=== PATIENT | male | born 1970 | race Caucasian/White ===

== ENCOUNTER 2025-01-19 15:07 | Emergency (ER) | payer OTHER, SELFPAY ==
--- OUTSIDE RECORDS SUMMARY | 2025-01-19 15:10 | XMS_ITS | Clinical Summary ---
Author Organization [facility] Address [address] [place] [address] Care Team Providers Care Primary Special Educator Name Role Phone Alexandra Wilson Primary Care Provider [phone] Allergies No known active allergies Medications fish oil 1000 MG Cap capsule Take 1 capsule (1,000 mg total) by mouth 2 (two) times daily. Active acetaminophen (TYLENOL) 500 MG tablet Take 1 tablet (500 mg total) by mouth every 6 (six) hours as needed for Pain. Active atorvastatin (LIPITOR) 20 MG tabletIndications :Dyslipidemia TAKE 1 TABLET NIGHTLY AT BEDTIME 90 tablet 2 5 Active lisinopril (PRINIVIL) 20 MG tabletIndications :Primary hypertension TAKE 1 TABLET DAILY 90 tablet 3 5 Active Active Problems Problem Noted Date Diagnosed Date Cervical radiculopathy 11/04/2022 Overview (11/04/2022): Added automatically from request for surgery [id number] Dyslipidemia 01/17/2012 Hypertension 01/17/2012 Esophageal stricture Resolved Problems Problem Noted Date Diagnosed Date Resolved Date Fatigue 08/05/2016 08/09/2022 Encounters Date Type Department Care Team Description 12/21/2024 Scan [facility] Scanned, Doc [facility] 12/10/2024 10:20 AM CDT - 12/10/2024 10:40 AM CDT Surgery [facility] [place] [address] [id number] Martha Wang MD INJECTION EPIDURAL STEROID CERVICAL c67 12/10/2024 9:43 AM CDT - 12/10/2024 10:06 AM CDT Hospital Encounter [facility] [place] [address] [id number] Martha Wang MD Discharge Disposition: Home or Self Care (Routine Discharge) 12/10/2024 Travel from Last 3 Months Immunizations Immunization Administration Dates Next Due Fluzone 6 Months+ Quad (0.5 mL Prefilled Syringe) 11/16/2021,11/14/2020,11/07/2018 Influenza Adult (Generic) 11/19/2022,01/21/2018 PFIZER COVID-19 (ORIGINAL FO RMULATION, PURPLE CAP) mRNA, LNP-S, PF, 30 MCG/0.3 ML DOSE 02/06/2021,05/09/2020,04/18/2020 Tdap (Generic) 12/13/2013 Family History Medical History Relation Comments Migraines Daughter COPD Father Heart Disease Father Hypertension Father Brain Tumor Mother COPD Mother Diabetes Son Type 1 Relation Status Comments Daughter Father Mother Son Social History Tobacco Use Types Packs/Day Years Used Date Smoking Tobacco: Never Smokeless Tobacco: Never Tobacco Cessation:Counseling Given: No Alcohol Use Standard Drinks/Week Comments Yes 3.3 (1 standard drink = 0.6 oz p ure alcohol) social PHQ-2 Answer Date Recorded Patient Health Questionnaire-2 Score 0 04/18/2024 Sex and Gender Information Value Date Recorded Sex Assigned at Male 06/15/2024 6:54 AM CDT Legal Sex Male 7:44 PM CDT Gender Identity Not on file Sexual Orientation Not on file Last Filed Vital Signs Vital Sign Reading Time Taken Comments Blood Pressure 152/87 12/10/2024 10:00 AM CDT Pulse 84 12/10/2024 10:00 AM CDT Temperature 36.9 C (98.4 F) 12/10/2024 9:47 AM CDT Respiratory Rate 18 12/10/2024 10:00 AM CDT Oxygen Saturation 98% 12/10/2024 10:00 AM CDT Inhaled Oxygen Concentration - - Weight 85.7 kg (189 lb) 12/10/2024 9:47 AM CDT Height 175.3 cm (5' 9) 12/10/2024 9:47 AM CDT Body Mass Index 27.91 12/10/2024 9:47 AM CDT Plan of Treatment Health Maintenance Due Date Last Done Comments Hepatitis B Vaccines (1 of 3 - 19+ 3-dose series) 02/04/1987 Pneumococcal Vaccine: 50+ Years (1 of 1 - PCV) 02/04/2018 Zoster Vaccines (1 of 2) 02/04/2018 DTaP, Tdap and Td Vaccines (2 - Td or Tdap) 12/14/2023 12/13/2013 Annual Physical 08/15/2024 08/16/2023, 10/23, 11/14/2020, Additional history exists COVID-19 Vaccine ( season) 2024 02/06/2021, 05/09/2020, 04/18/2020 Influenza Adult (#1) 2024 11/25/2023, 11/19/2022, 11/16/2021, Additional history exists Colorectal Cancer Screening Colonoscopy (10 Years) 02/06/2029 02/06/2019, 02/06/2019, 02/06/2019 Hepatitis C Completed 12/12/2020 PHQ-2 (Physician [place]) Completed 04/18/2024 Hepatitis A Vaccines Aged Out No long er eligible based on patient's age to complete this topic Meningococcal B Vaccine Aged Out No l onger eligible based on patient's age to complete this topic Meningococcal Vaccine Aged Out No sylwia lorenza eligible based on patient's age to complete this topic RSV Immunizations Under 20 Months Aged Out No longer eligible based on patient's age to complete this topic Procedures Procedure Name Priority Date/Time Associated Diagnosis Comments NJX INTERLAMINAR CRV/THRC 12/10/2024 9:55 AM CDT Cervical radiculopathy XR PAIN CLINIC C-ARM Today 12/10/2024 9:46 AM CDT HEPATITIS C ANTIBODY 12/12/2020 7:42 AM CDT COLONOSCOPY Routine 02/06/2019 9:54 AM CYBER FORENSICS ANALYST from Last 3 Months or Most Recently Relevant to Health Maintenance Results * XR PAIN CLINIC C-ARM (12/10/2024 9:46 AM CDT) Narrative Radiology, Technologist - 12/10/2024 9:46 AM CDT This report does not contain a radiologist's interpretation. Please review associated procedure and/or operative report. us Martha Wang MD GENERAL IMAGING Final Result * HEPATITIS C ANTIBODY (12/12/2020 7:42 AM CDT) HEPATITIS C AB <0.1 0.0 - 0.9 s/co ratio [facility] 1 Comment: Negative: < 0.8 Indeterminate: 0.8 - 0.9 Positive: > 0.9 The CDC recommends that a positive HCV antibody result be followed up with a HCV Nucleic Acid Amplification test ([id number]). 12/12/2020 7:42 AM CDT 12/12/2020 Narrative [facility] - 12/18/2020 8:13 AM CDT Performed at: 01 - [facility] [id number] Turkey Farmer: Neo Parks PhD, Phone: [phone] Alexandra Wilson DO LABORATORY Final Result [facility] [address] [place] [address] [facility] 1 * COLONOSCOPY (02/06/2019) us Documents Scanned SCANNING Final Result [facility] from Last 3 Months or Most Recently Relevant to Health Maintenance Insurance [facility] Care Teams Primary Special Educator Relationship Specialty Start Date End Date Alexandra Wilson DO [address] '[place] [address] PCP - General 07/07/15
[2025-01-19 15:16] VITALS: BP 138/83; PULSE 86; RESP 20; TEMP 36.3; O2SAT 98
--- NOTE | 2025-01-19 15:20 | ED.BACK ---
HPI - Back Pain/Injury General Chief Complaint: Urogenital-Male Stated Complaint: Stomach / Back Pain Time Seen by Provider: 01/19/25 15:24 Source: patient and RN notes reviewed Mode of arrival: ambulatory Limitations: no limitations History of Present Illness HPI Narrative: 54 y/o male presented for c/o pain across low back and lower abdomen. Onset this morning. Rates 5/10. Says urine is darker in color today. Denies known injury. Denies n/v/d/f/c. Denies painful urination or change in urine stream. Denies pain radiating into the hips or legs, numbness, tingling, weakness of the lower extremities. Follows with urology for Peyronie's. Has not taken anything for pain. Related Data Home Medications ?Medication ?Instructions ?Recorded ?Confirmed ?Last Taken ?Type atorvastatin 20 mg tablet mg 01/19/25 Unknown History lisinopril 20 mg tablet mg 01/19/25 Unknown History pentoxifylline 400 mg mg PO 01/19/25 Unknown History tablet,extended release Allergies Allergy/AdvReac Type Severity Reaction Status Date / Time simvastatin Allergy Mild Rash Verified 01/19/25 15:12 Review of Systems Review of Systems: CONSTITUTIONAL: Denies body aches, fever, chills CARDIOVASCULAR: Denies chest pain, palpitations, or edema. RESPIRATORY: Denies cough or dyspnea. GASTROINTESTINAL: Endorses abdominal pain, Denies nausea, vomiting, diarrhea, hematochezia, melena GENITOURINARY: reports dark urine Denies dysuria, or CVA tenderness. SKIN: Denies rash or bruising MUSCULOSKELETAL: reports low back pain, denies joint pain, or myalgia. NEUROLOGIC: Denies headache, numbness, tingling, or weakness. All systems reviewed & are unremarkable except as noted in HPI and below PMFSH Past Medical History Medical History (Updated 01/19/25 @ 15:50 by Anu Scott, YULISSA) Mixed hyperlipidemia Comments At time of signature, I have reviewed and agree with nursing past medical, surgical, social and family history unless otherwise noted. Please see nursing chart for further information. There is no relevant family history pertinent to the presenting complaint Exam Narrative: GENERAL: Well-appearing, and in no acute distress. EYES: EOMI. Conjunctivae normal. ENT: Mucous membranes pink and moist. CHEST: No respiratory distress. Clear to auscultation. HEART: Regular rate and rhythm. No murmur appreciated. Normal peripheral pulses. ABDOMEN: Right flank tenderness. Tender abdomen bilateral lower quadrants; No guarding, rebound tenderness, asymmetry. abd soft, nondistended, normal active bowel sounds. MUSC: Lumbar para spinal tenderness with palpation, no bruising or rash. Normal range of motion. No edema. SKIN: Warm, dry, no rash. Capillary refill normal. Normal skin turgor. NEURO: No focal deficits. Alert and oriented x3. PSYCH: Normal affect. Course Course Emergency Course: Patient is aware of diagnosis, understands and agrees to treatment plan. Anticipatory guidance given. Patient agrees to follow-up as directed and is aware of reasons to seek care at the emergency department. Portions of this record may have been created with voice recognition software Level of Care: Express Care Visit Vital Signs Vital signs: Vital Signs Temperature 97.4 F L 01/19/25 15:16 Pulse Rate 86 01/19/25 15:16 Respiratory Rate 20 01/19/25 15:16 Blood Pressure 138/83 01/19/25 15:16 Pulse Oximetry 98 01/19/25 15:16 Oxygen Delivery Room Air 01/19/25 15:16 Temperature 97.4 F L 01/19/25 15:16 Pulse Rate 86 01/19/25 15:16 Respiratory Rate 20 01/19/25 15:16 Blood Pressure 138/83 01/19/25 15:16 Pulse Oximetry 98 01/19/25 15:16 Oxygen Delivery Room Air 01/19/25 15:16 Transfer Transfered to: [facility] Transportation: Other (private vehicle) Transfer rationale: Pt is agreeable to transfer. Requests transfer to [facility] via private vehicle. Risks of transportation reviewed with pt including injury, worsening of condition and . v/u. will be driving pt; Report called to hospital, spoke with Nickie Bojorquez NP, accepting physician. Pt is in stable condition at time of transfer. Advised to remain NPO and go directly to the hospital. MDM - Back Pain/Injury MDM Narrative Medical decision making narrative: Discussed physical exam findings; right flank tenderness and 3+blood on urine dip. Advised ER transfer. Requests [facility]. Differential Diagnosis Differential diagnosis: Likely lumbar radiculopathy, strain of lumbar region, renal colic, pyelonephritis and other (UTI, nephrolithiasis, prostatitis) Discharge Plan Discharge Clinical Impression: Hematuria Qualifiers: Hematuria type: gross Qualified Code(s): R31.0 - Gross hematuria Patient Disposition: Acute Care Hospital Condition: Stable Patient Language: Turkish Prescriptions: No Action atorvastatin 20 mg tablet lisinopril 20 mg tablet pentoxifylline 400 mg tablet extended release PO Follow-up/Referrals: Steve,Alexandra Chappell MD [Primary Care Provider] Time of Disposition: 15:50
[2025-01-19 15:34] LABS: EDUAAPPEAR Cloudy; EDUABILI Negative (Negative); EDUABLOOD 3+ (Negative); EDUACOLOR1 Red; EDUAGLUCOSE Negative (Negative); EDUAKETONE Negative (Negative); EDUALEUKO Negative (Negative); EDUANITRATE Negative (Negative); EDUAPH 6.0; EDUAPROTEIN 1+ (Negative); EDUASPGRAVITY 1.020; EDUAUROBILI 0.2
== END 2025-01-19 15:51 | disposition short-term general hospital (02) ==
PROVIDERS: Emergency Provider Nurse Practitioner Family; PCP Family Medicine
DX: R31.0 Gross hematuria (principal); E78.2 Mixed hyperlipidemia
CPT/HCPCS: 81003; 87086; 99212; 99213; G0463

== ENCOUNTER 2025-01-19 15:56 | Emergency (ER) | payer OTHER, SELFPAY ==
--- NOTE | ~2025-01-19 | CT_ITS ---
EXAMINATION: CT abdomen pelvis wo con, 01/19/2025 16:40 [facility] HISTORY: concern for kidney stone COMPARISON: No comparisons available. TECHNIQUE: CT scan of the abdomen and pelvis was performed without IV contrast. One or more of the following dose reduction techniques were used: automated exposure control, adjustment of the mA and/or kV according to patient size, use of iterative reconstruction technique. Unless otherwise stated, incidental findings do not require dedicated follow up imaging FINDINGS: CT abdomen: LUNG BASES: The lung bases are clear. The visualized portions of the heart and pericardium are unremarkable. LIVER: Mild hepatic steatosis. SPLEEN: Unremarkable, no splenomegaly. KIDNEYS: Right Kidney: Right kidney midpole simple cyst 1.5 x 1.5 cm with mild hydronephrosis with an obstructing calculus in the junction of the renal pelvis and proximal ureter measuring 1.2 x 1 cm. Left Kidney: Left kidney midpole simple cyst 1 x 1 cm. ADRENAL GLANDS: Unremarkable. PANCREAS: Unremarkable. GALLBLADDER/BILIARY: Unremarkable. No biliary dilatation. STOMACH AND ESOPHAGUS: Small hypoattenuating minimal thickening of the esophagus may represent mild esophagitis. BOWEL/MESENTERY: No colitis or diverticulitis. Appendix normal. Mesentery normal. No thickened or dilated loops of small bowel. ADENOPATHY/RETROPERITONEUM: No lymphadenopathy. AORTA/VASCULATURE: Normal caliber aorta. FREE FLUID OR FREE AIR: No free fluid.. CT pelvis: SOLID ORGANS/REPRODUCTIVE: Prostate enlarged. BLADDER: Circumferential thickening of the bladder wall. OSSEOUS STRUCTURES: No acute osseous abnormality.No suspicious lesions. OVERLYING SOFT TISSUES: Unremarkable. IMPRESSION: Right-sided obstructive uropathy Reviewed, dictated and finalized at location [facility]
--- NOTE | 2025-01-19 16:00 | ED_ITS ---
HPI - Male Genitourinary General Chief complaint: Urogenital-Male Stated complaint: blood in urine Time Seen by Provider: 01/19/25 15:58 History of Present Illness HPI Narrative: Patient is a 54-year-old male who presents to the ER with complaints of back pain that radiates to his abdomen. He reports the pain started this morning. Patient reports the right flank pain is worse than the left but the pain is bilateral. He reports his last bowel movement was this morning and it was normal for him. Patient reports he has had ?dark urine so he went to urgent care for further evaluation, who advised him to come to the ER for evaluation. He endorses a history of hip osteoarthritis, high blood pressure and a known nonobstructing kidney stone. Related Data Home Medications ?Medication ?Instructions ?Recorded ?Confirmed ?Last Taken ?Type atorvastatin 20 mg tablet mg 01/19/25 Unknown History lisinopril 20 mg tablet mg 01/19/25 Unknown History pentoxifylline 400 mg mg PO 01/19/25 Unknown Hist ory tablet,extended release Allergies Allergy/AdvReac Type Severity Reaction Status Date / Time No Known Allergies Allergy Verified 01/19/25 16:05 Review of Systems 2 Review of Systems: All systems reviewed & are unremarkable except as noted in HPI and below PMFSH Past Medical History Medical History Mixed hyperlipidemia Exam 2 Narrative: GENERAL: Well appearing, well-nourished, non-toxic, in no acute distress. HEAD: Normocephalic, atraumatic. NECK: Supple. No adenopathy, no masses. RESPIRATORY: Airway patent, respirations nonlabored. Clear to auscultation bilaterally, no rales, rhonchi, wheezing. CARDIOVASCULAR: Regular rate and rhythm without murmurs, rubs, or gallops. Peripheral pulses 2+ and equal bilaterally. +R CVA tenderness ABDOMINAL: Soft, bilateral lower quadrant tenderness, nondistended, no hepatosplenomegaly. Normoactive BS. MUSCULOSKELETAL: Moves all extremities. Strength/ROM intact without gross deformities. SKIN: Warm, dry, normal color. No rashes. NEURO: A&O X3. Speech clear. Cranial nerves II-XII intact. No ataxic movements. PSYCHIATRIC: Appropriate mood and affect. Normal interaction. Course Vital Signs Vital signs: Vital Signs Temperature 36.4 C L 01/19/25 16:02 Pulse Rate 77 01/19/25 16:02 Respiratory Rate 18 01/19/25 16:02 Blood Pressure 143/93 H 01/19/25 16:02 Pulse Oximetry 99 01/19/25 16:02 Oxygen Delivery Room Air 01/19/25 16:02 Temperature 36.4 C L 01/19/25 16:02 Pulse Rate 77 01/19/25 16:02 Respiratory Rate 18 01/19/25 16:02 Blood Pressure 143/93 H 01/19/25 16:02 Pulse Oximetry 99 01/19/25 16:02 Oxygen Delivery Room Air 01/19/25 16:02 MDM - Male Genitourinary MDM Narrative Medical decision making narrative: Patient is a 54-year-old male who presents to the ER with complaints of back pain that radiates to his abdomen. He reports the pain started this morning. Patient reports the right flank pain is worse than the left but the pain is bilateral. He reports his last bowel movement was this morning and it was normal for him. Patient reports he has had ?dark urine so he went to urgent care for further evaluation, who advised him to come to the ER for evaluation. He endorses a history of hip osteoarthritis, high blood pressure and a known nonobstructing kidney stone. Labs Ordered: CBC, CMP, UA (at urgent care) Imaging Ordered: CT abdomen pelvis Medications Ordered: 1 L normal saline IV bolus, patient declines pain medication at this time Results: Pt's CT scan indicates Right kidney midpole simple cyst 1.5 x 1.5 cm with mild hydronephrosis with an obstructing calculus in the junction of the renal pelvis and proximal ureter measuring 1.2 x 1 cm. Diagnosis: mild hydronephrosis, R obstructing calculi in proximaly ureter Risks: HEART score, PECARN score, CURB-65 score Consults: 3527- urology, Dr. Jeter, who advises pt can be discharged home with close follow-up with urology outpatient. She reports pt does not need a prescription for Flomax. Pt may receive Toradol as needed for pain control. Patient Education/Shared MDM: Results of lab work and imaging shared with patient and his . He continues to decline the need for pain medication. Patient strongly advised to maintain hydration status upon discharge and follow- up with Urology as soon as possible. He will be discharged home with a prescription for [place]. Strict return precautions provided. Patient verbalized understanding and is in agreement with plan. Vital signs stable at time of discharge. All questions answered. Differential Diagnosis Differential diagnosis: Likely urinary tract infection, acute retention of urine and other (Kidney stone, hematuria, TOMAS) Lab Data Attestation: I reviewed the patient's lab results. 01/19/25 16:15 01/19/25 16:15 Labs: Lab Results 01/19/25 Range/Units 16:15 WBC 7.9 (4.5-10.0) K/mm3 RBC 5.30 (4.6-6.20) M/mm3 Hgb 15.5 (14.0-18.0) g/dL Hct 45.4 (42.0-52.0) % MCV 85.7 (80-100) fl MCH 29.2 (26-34) pg MCHC 34.1 (32-36) g/dl RDW 12.3 (11.5-14.5) % Plt Count 264 (150-375) k/mm3 MPV 9.0 (7.4-10.4) fl Immature Gran % (Auto) 0.3 (0-0.5) % Neut % (Auto) 73.3 H (45.5-73.1) % Lymph % (Auto) 18.3 (18.3-44.2) % [place] % (Auto) 6.3 (2.6-8.5) % Eos % (Auto) 1.4 (0-4.4) % Baso % (Auto) 0.4 (0.2-1.2) % Lymph # (Auto) 1.44 (0.9-3.2) K/mm3 [place] # (Auto) 0.5 (0.1-0.6) K/mm3 Eos # (Auto) 0.1 (0-0.3) K/mm3 Baso # (Auto) 0.0 (0.0-0.1) K/mm3 Abs Immat Gran (auto) 0.02 (0.00-0.031) K/mm3 Absolute Neuts (auto) 5.8 (1.3-6.7) K/mm3 Absolute Nucleated RBC 0.000 (0.0-0.012) K/mm3 Nucleated RBC % 0.0 (0.0-0.2) % Sodium 139 (137-145) mmol/L Potassium 3.9 (3.4-5.0) mmol/L Chloride 103 (98-107) mmol/L Carbon Dioxide 27 (22-30) mmol/L Anion Gap 9 (4-12) mmol/L BUN 13 (9-20) mg/dL Creatinine 0.80 (0.7-1.3) mg/dL Estim Creat Clear Calc 90 ml/min Estimated GFR > 60 (59 - ) Glucose 109 (65-110) mg/dL Calcium 10.0 (8.4-10.2) mg/dL Total Bilirubin 2.3 H (0.2-1.3) mg/dL AST 30 (17-59) U/L ALT 28 (6-50) U/L Alkaline Phosphatase 100 (38-126) U/L Total Protein 8.0 (6.3-8.2) g/dL Albumin 4.8 (3.5-5.1) g/dL Imaging Data Attestation: I personally reviewed and interpreted this imaging study as follows: Radiologist's impression: Impressions Abdomen/Pelvis CT 01/19/25 17:16 IMPRESSION: Right-sided obstructive uropathy Discharge Plan Discharge Clinical Impression: Renal calculus, right, Hematuria, Renal cyst, right Patient Disposition: Home Condition: Stable Instructions: Antibiotic Form, Kidney Stones (ED) Additional Instructions: Please return to the ER with any worsening symptoms. Follow-up with Urology as soon as possible. You may call [phone] to schedule a follow-up appointment or call the urologist's office listed below. Take all medications as prescribed, including regularly scheduled medications. Remember to drink lots of water. You may take [place] as needed for pain control. Patient Language: Pakistani Prescriptions: No Action atorvastatin 20 mg tablet lisinopril 20 mg tablet pentoxifylline 400 mg tablet extended release PO Follow-up/Referrals: Becca Jeter MD [Physician, Urology] Steve,Alexandra Chappell MD [Primary Care Provider] Time of Disposition: 18:02
[2025-01-19 16:02] VITALS: BP 143/93; PULSE 77; RESP 18; TEMP 36.4; O2SAT 99
[2025-01-19 16:27] LABS: Hematocrit 45.4 % (42.0-52.0); Hemoglobin 15.5 g/dL (14.0-18.0); Immature Granulocyte Percent A 0.3 % (0-0.5); Lymphocytes Absolute Auto 1.44 K/mm3 (0.9-3.2); Mean Corpuscular HGB Conc 34.1 g/dl (32-36); Mean Corpuscular Hemoglobin 29.2 pg (26-34); Mean Corpuscular Volume 85.7 fl (80-100); Nucleated Red Blood Cells Absolute Auto 0.000 K/mm3 (0.0-0.012); Nucleated Red Blood Cells Perc 0.0 % (0.0-0.2); Platelet Count Result 264 k/mm3 (150-375); Red Blood Count 5.30 M/mm3 (4.6-6.20); White Blood Count 7.9 K/mm3 (4.5-10.0)
[2025-01-19 16:39] LABS: Alanine Aminotransferase 28 U/L (6-50); Albumin Level 4.8 g/dL (3.5-5.1); Alkaline Phosphatase 100 U/L (38-126); Anion Gap 9 mmol/L (4-12); Aspartate Amino Transferase 30 U/L (17-59); Bilirubin,Total 2.3 mg/dL (0.2-1.3); Blood Urea Nitrogen 13 mg/dL (9-20); Calcium 10.0 mg/dL (8.4-10.2); Carbon Dioxide 27 mmol/L (22-30); Chloride 103 mmol/L (98-107); Estimated CRCL calculation 90 ml/min; Estimated Glomerular Filt Rate > 60; Glucose 109 mg/dL (65-110); Potassium 3.9 mmol/L (3.4-5.0); Sodium 139 mmol/L (137-145); Total Protein 8.0 g/dL (6.3-8.2)
[2025-01-19 18:42] VITALS: BP 139/87; PULSE 90; RESP 15; O2SAT 100
== END 2025-01-19 18:43 | disposition home or self-care (01) ==
PROVIDERS: Emergency Provider Registered Nurse; PCP Family Medicine
DX: N13.2 Hydronephrosis with renal and ureteral calculous obstruction (principal); N28.1 Cyst of kidney, acquired; R31.9 Hematuria, unspecified; I10 Essential (primary) hypertension; E78.2 Mixed hyperlipidemia; M16.9 Osteoarthritis of hip, unspecified
CPT/HCPCS: 36415; 74176; 80053; 85025; 96360; 99284

== ENCOUNTER 2025-01-24 11:10 | Outpatient (CLI) | payer OTHER, SELFPAY ==
--- NOTE | 2025-01-24 11:38 | ECG_ITS ---
Test Date: 2025-01-24 11:48:45 Measurements Intervals [place] Rate: 74 P: 55 NV: 183 QRS: 37 QRSD: 102 T: 49 QT: 345 QTc: 383 Interpretive Statements SINUS RHYTHM BASELINE ARTIFACT- I, II, III, AVR, AVL NORMAL ECG No previous ECG available for comparison Electronically Signed On 01-24-2025 11:52:27 LISW by Adams Dhillon D.O.
[2025-01-24 12:16] LABS: INR 1.0; Prothrombin Time 13.2 Seconds (11.1-14.7)
[2025-01-24 12:17] LABS: Partial Thromboplastin Time 32.0 Seconds (22.3-36.8)
== END 2025-01-24 11:11 | disposition home or self-care (01) ==
LOC: ANHSURGERY 11:12
PROVIDERS: PCP Family Medicine; Visit Provider Urology
DX: E78.2 Mixed hyperlipidemia (principal); N20.0 Calculus of kidney; Z01.818 Encounter for other preprocedural examination
CPT/HCPCS: 36415; 85610; 85730; 93005

== ENCOUNTER 2025-01-25 01:31 | Day surgery (SDC) | payer OTHER, SELFPAY ==
[2025-01-23 13:44] VITALS: BMI 26.6
--- NOTE | 2025-01-23 15:24 | PC.NURSE ---
[facility] has started construction of its new state of the art ER which will open Spring 2026. With this, we anticipate parking may be a challenge for some our surgical patients and families. Parking spaces are limited but are available for all Surgical, obstetrics, and ER patients sharing this lot. If you arrive and find you are having a hard time finding a parking space, please note that we understand the challenges, please drive around the hospital and park near Hospital Entrance 1. When you enter this entrance, you can ask a volunteer to direct or take you back to the surgical waiting area to check in. We appreciate everyone?s understanding of these expected challenges while we build for your future. Report to the Outpatient Waiting Room, entrance under the green pavilion located off [address], at time __11:00AM____ on date ___01/25/25__. Planned Procedure Time: __1:00PM____.? Time changes happen often and if your time is changed the preop area will call you the afternoon before. - You and your visitor will be asked to self-screen and do not enter if you have any COVID symptoms. Please call surgeon if you need to reschedule. - A mask is optional within the hospital at this time. Patients may have clear liquids (water, carbonated beverages, clear teas, apple juice) until 3 hours prior to surgery (10:00AM) with a maximum of 20 ounces. - No food from midnight until time of surgery and no smoking, or chewing tobacco (or any form of nicotine). No chewing gum, candy or mints. Take only the following medications with a SIP of water on the morning of surgery: ___OXYCODONE NEEDED FOR PAIN DO NOT STOP ANY OF YOUR OTHER PRESCRIPTION MEDICATIONS PRIOR TO SURGERY EXCEPT THE FOLLOWING Hold all vitamins and supplements for 3 days per anesthesiologist.--STARTING NOW Medications to discontinue per physician Date to take last dose Please no make-up, nail colombian, hairspray, perfume, deodorant, or body powder the day of surgery.? No jewelry (including any body piercings) or valuables the day of surgery, leave them at home.? Please take a shower or bath the night before, or the morning of, surgery with an antibacterial soap.? Wear comfortable, loose fitting clothing.? - Jewelry must be removed prior to entering the operating room.? Rings and piercings that are not removed may be cut off. - The hospital will not accept responsibility for valuables.? - Please leave all valuables, including medications, at home the day of surgery. If you are going home after surgery, a licensed services delivery driver must drive you home.? - NO public transportation without another adult if you receive anesthesia. - We recommend that an adult stay with you for 24 hours following discharge. - We also recommend that you do not drive, make important decision, drink alcoholic beverages, or take any drugs that were not prescribed by your health care provider for at least 24 hours after your discharge time. Follow any additional instructions given to you from your surgeon. Telephone instructions given to ____PATIENT and asked if any additional questions and then verbalized understanding. Patient advised to call surgeon office or pre surgery nurse liaison [phone] if any additional questions.
[2025-01-25] VITALS (10 sets, daily range): BP systolic 113–169; BP diastolic 79–88; PULSE 67–105; RESP 12–14; TEMP 36.3–37.1; O2SAT 97–100; BMI 27.6
--- NOTE | ~2025-01-25 | XR_ITS ---
XR abdomen/kub 1V 01/25/2025 11:10 Indication: Preop ESWL Procedure: KUB Comparison: CT dated 01/19/2025 Findings: There is an irregular shaped calcification in the right renal pelvis. Bowel gas pattern nonobstructive. Lung bases unremarkable. No acute osseous abnormality. There are pelvic phleboliths. Impression: 1: Irregular shaped right renal stone overlying the expected location the renal pelvis. Reviewed, dictated and finalized at location I. LLMENT MANAGEMENT DIRECTOR Impression: 1: Irregular shaped right renal stone overlying the expected location the renal pelvis.
--- OUTSIDE RECORDS SUMMARY | 2025-01-25 01:34 | XMS_ITS | Encounter Summary ---
Author Organization [facility] Address [facility] [place] [address] Care Team Providers Care Charting Clerk Name Role Phone Alexandra Wilson DO Primary Care Provider [phone] Encounter Details Date Type Department Care Team (Latest Contact Info) Description 01/22/2025 Scan [facility] INFO SRVCS Scanned, Doc Med Group Social History Tobacco Use Types Packs/Day Years Used Date Smoking Tobacco: Never Smokeless Tobacco: Never Alcohol Use Standard Drinks/Week Comments Yes 3.3 (1 standard drink = 0.6 oz p ure alcohol) social PHQ-2 Answer Date Recorded Patient Health Questionnaire-2 Score 0 04/18/2024 Sex and Gender Information Value Date Recorded Sex Assigned at Male 06/15/2024 6:54 AM CDT Legal Sex Male 7:44 PM CDT Gender Identity Not on file Sexual Orientation Not on file documented as of this encounter Plan of Treatment Not on file documented as of this encounter Visit Diagnoses Not on filedocumented in this encounter Additional Health Concerns Assessment Noted Time PHQ-9 Depression Total Score: 0 11/15/19 21 7:50 AM CDT documented as of this encounter Care Teams Charting Clerk Relationship Specialty Start Date End Date Alexandra Wilson DO [address] [place] [address] PCP - General 07/07/15 documented as of this encounter
--- OUTSIDE RECORDS SUMMARY | 2025-01-25 01:34 | XMS_ITS | Clinical Summary ---
Author Organization [facility] Address [address] [place] [address] Care Team Providers Care Bracelet Former Name Role Phone Alexandra Wilson Primary Care Provider [phone] Allergies No known active allergies Medications fish [...] (11/04/2022): Added automatically from request for surgery [id number] Dyslipidemia 01/17/2012 Hypertension 01/17/2012 Esophageal stricture Resolved Problems Problem Noted Date Diagnosed Date Resolved Date Fatigue 08/05/2016 08/09/2022 Encounters Date Type Department Care Team Description 01/22/2025 Scan [facility] INFO SRVCS Scanned, Doc Med Group 12/21/2024 Scan [facility] INFO SRVCS Scanned, Doc Med Group 12/10/2024 10:20 AM CDT - 12/10/2024 10:40 AM CDT Surgery [facility] Interventional [place] [address] [id number] Martha Wang MD INJECTION EPIDURAL STEROID CERVICAL c67 12/10/2024 9:43 AM CDT - 12/10/2024 10:06 AM CDT Hospital Encounter [facility] Interventional [place] [address] [id number] Martha Wang MD Discharge Disposition: Home or [...] 02/06/2019 Hepatitis C Completed 12/12/2020 PHQ-2 (Physician [place]) Completed 04/18/2024 Hepatitis A Vaccines Aged Out [...] AM CDT COLONOSCOPY Routine 02/06/2019 9:54 AM NETWORK CABLE INSTALLER from Last 3 Months or Most Recently Relevant to Health Maintenance Results * XR PAIN CLINIC C-ARM (12/10/2024 9:46 AM CDT) Narrative Radiology, Technologist - 12/10/2024 9:46 AM CDT This report does not contain a radiologist's interpretation. Please review associated procedure and/or operative report. us Martha Wang MD GENERAL IMAGING Final Result * HEPATITIS C ANTIBODY (12/12/2020 7:42 AM CDT) Pathologist [facility] HEPATITIS C AB <0.1 0.0 - 0.9 s/co ratio [facility] 1 Comment: Negative: < 0.8 Indeterminate: 0.8 - 0.9 Positive: > 0.9 The CDC recommends that a positive HCV antibody result be followed up with a HCV Nucleic Acid Amplification test (353974). 12/12/2020 7:42 AM CDT 12/12/2020 Narrative [facility] - 12/18/2020 8:13 AM CDT Performed at: 01 - [facility] [id number] Tour Narrator: Neo Parks PhD, Phone: [phone] Alexandra Wilson DO LABORATORY Final Result [facility] [address] [place] [address] [facility] 1 * COLONOSCOPY (02/06/2019) us Documents Scanned SCANNING Final Result [facility] ONBASE from Last 3 Months or Most Recently Relevant to Health Maintenance Insurance [facility] Care Teams Bracelet Former Relationship Specialty Start Date End Date Alexandra Wilson DO [address] [place] [address] PCP - General 07/07/15
--- NOTE | 2025-01-25 06:24 | WPDHPUPDATE1 ---
History and Physical Update Update Date/Time: 01/25/25 06:24 History and Physical has been reviewed, including an updated exam of the patient. There are NO changes in the patient's condition. Risks, benefits, and alternatives have been discussed and questions answered. Patient agrees to proceed with procedure.
[2025-01-25] MEDS: LACTATED RINGERS 1,000 ML 30 ML IV CONT (11:45)
--- NOTE | 2025-01-25 12:53 | WPDANESEPPF ---
Anes - Initial Pre Proc Eval Procedure: Operation Date: 01/25/25 13:00 Proposed Procedures p Right Extracorporeal Shock Wave Lithotripsy - Edil Kolb MD s Cystoscopy with Right Stent Placement - Edil Kolb MD Date/Time: 01/25/25 12:53 Surgeon: Edil Kolb MD Pre Op Diagnosis: Urolithiasis, Rt Kidney Stone Patient Data Age: 54 Gender: M Height: 1.75 m Weight: 82 kg Allergies Allergy/AdvReac Type Severity Reaction Status Date / Time No Known Allergies Allergy Verified 01/25/25 12:49 Home Medications ?Medication ?Instructions ?Recorded ?Confirmed ?Type atorvastatin 20 mg tablet 20 mg PO HS 01/19/25 01/23/25 History lisinopril 20 mg tablet 20 mg PO QAM 01/19/25 01/23/25 History pentoxifylline 400 mg 400 mg PO Q12H PRN pain 01/19/25 01/23/25 History tablet,extended release oxycodone 5 mg tablet 5 mg PO Q8H PRN pain #14 tabs 01/21/25 01/23/25 Rx omega 3-xwf-obm-fish oil 1,000 mg 1 cap PO DAILY 01/23/25 01/25/25 History (120 mg-180 mg) capsule (Fish Oil) tamsulosin 0.4 mg capsule 0.4 mg PO Q24H 01/23/25 01/23/25 History Patient hx anesthesia problems: none Family hx anesthesia problems: none Results Review: All pre-operative results and documents have been reviewed as part of the pre-operative evaluation. [facility] Past Medical History Medical History Mixed hyperlipidemia Social History Social History Smoking status: Current some day smoker Additional smoking assessment comments: 1 CIGAR EVERY 3-4 MONTHS Alcohol intake: current Drinks per week: 3 Living arrangements: with family Additional living arrangements comments: Spiritual care concerns: No Anes - Eval Final PreProcedure Day of Procedure 01/25/25 12:53 Patient weight: overweight Heart: regular rate and rhythm Lungs: decreased breath sounds Airway: Mallampati scale class II Neurological: alert and oriented Last oral intake: >/= 8 hours ASA classification: III Emergent: no Anesthetic plan: proceed Anesthesia type and monitoring: general LMA and standard monitoring Results Review: All pre-operative results and documents have been reviewed as part of the pre-operative evaluation. Informed Consent: The patient's anesthetic plan and its attendant risks and benefits were discussed with the patient/family/POA. Questions were solicited and answers provided to the satisfaction of the patient/family/POA.
[2025-01-25] MEDS: ceFAZolin 2 GM in SODIUM CHLORIDE 0.9% IV 50 ML 100 ML IVPB (13:03)
[2025-01-25] MEDS: LIDOCAINE 2% GEL UROJET 10 ML PKG MUCOUS MEM (13:05)
--- NOTE | 2025-01-25 13:33 | P.OP_ITS ---
Procedure Note - Detailed Date of Procedure 01/25/25 Pre-op Diagnosis Right ureteral stone Post-op Diagnosis Same Procedure Performed Cystoscopy, right ureteral stent placement, right ESWL Surgeon Edil Kolb MD Anesthesia General Description of Procedure The patient was brought to the operative suite where he was placed in the supine position on the Dornier lithotripter table. Flexible cystoscopy was undertaken with a 16F flexible cystoscopy. There were no urethral strictures. The prostatic urethra estimated length was 1.5cm. There was mild obstruction of the prostatic urethra with nomedian lobe enlargement. The bladder mucosa was normal and there was a single, orthotopic ureteral orifice bilaterally. A 0.035 glidewire was advanced into the right renal pelvis under fluoroscopy. A 4.8F J- J ureteral stent was positioned with the proximal coil in the renal pelvis and the distal coil in the bladder. The patient was then repositioned in the supine position with the focal point of the lithotriptor on a 16mm right proximal ureterall calculus. A total of 3000 shocks were delivered at a power setting of 5. There appeared to be good fragmentation of the stone. The patient tolerated the procedure well and was taken to the recovery room in good condition.
--- NOTE | 2025-01-25 15:45 | SUR.PHASEII ---
PATIENT ATTEMPTED TO URINATE X2 BUT ONLY DRIBBLES; FEELS THE URGE TO URINATE.
== END 2025-01-25 16:25 | disposition home or self-care (01) ==
PROVIDERS: PCP Family Medicine; Visit Provider Urology
PROC: (CPT 50590; principal; 2025-01-25 13:00)
PROC: (CPT 52352; 2025-01-25 13:00)
DX: N20.1 Calculus of ureter (principal); I10 Essential (primary) hypertension; E78.2 Mixed hyperlipidemia; F17.290 Nicotine dependence, other tobacco product, uncomplicated; Z79.891 Long term (current) use of opiate analgesic; Z98.890 Other specified postprocedural states; Z82.49 Family history of ischemic heart disease and other diseases of the circulatory system
CPT/HCPCS: 52332; 50590; 74018; J0690; C1758; C1769; C2617; J1100; J2250; J2270; J2405; J2704; J7120

== ENCOUNTER 2025-02-05 13:27 | Outpatient (CLI) | payer OTHER, SELFPAY ==
--- NOTE | ~2025-02-05 | XR_ITS ---
EXAMINATION: XR abdomen/kub 1V, 02/05/2025 13:35 OPERATION SPECIALIST HISTORY: N20.1 - Calculus of ureter COMPARISON: No comparisons available. Technique: 3 view. Findings: Bowel gas pattern unremarkable. No obstruction. No free air. No abnormal calcifications No acute osseous abnormality. Right ureteral stent with calculi in the right kidney largest lower pole 5 x 6 mm, there are calculi adjacent to the stent in the proximal to mid ureter the largest measuring 3 x 4 mm. Impression: 1. Renal and right ureteral calculi detailed above Reviewed, dictated and finalized at location P. ATION SPECIALIST Impression: 1. Renal and right ureteral calculi detailed above
--- OUTSIDE RECORDS SUMMARY | 2025-02-05 15:32 | XMS_ITS | Clinical Summary ---
Author Organization [facility] Address [address] [place] [address] Care Team Providers Care Iv Rn Name Role Phone Alexandra Wilson Primary Care Provider Allergies No known active allergies Medications fish [...] (11/04/2022): Added automatically from request for surgery [id number] Dyslipidemia 01/17/2012 Hypertension 01/17/2012 Esophageal stricture Resolved Problems Problem Noted Date Diagnosed Date Resolved Date Fatigue 08/05/2016 08/09/2022 Encounters Date Type Department Care Team Description 01/25/2025 Scan [facility] INFO SRVCS Scanned, Doc Med Group Image (SCAN); Procedure (SCAN) 01/22/2025 Scan [facility] INFO SRVCS Scanned, Doc Med Group 01/19/2025 Scan [facility] INFO SRVCS Scanned, Doc Med Group 12/21/2024 Scan [facility] INFO SRVCS Scanned, Doc Med Group 12/10/2024 10:20 AM CDT - 12/10/2024 10:40 AM CDT Surgery [facility] Interventional [place] [address] [id number] Martha Wang MD INJECTION EPIDURAL STEROID CERVICAL c67 12/10/2024 9:43 AM CDT - 12/10/2024 10:06 AM CDT Hospital Encounter [facility] [place]ventional [place] [address] [phone] Martha Wang MD Discharge Disposition: Home or [...] 10/23, 11/14/2020, Additional history exists COVID-19 Vaccine (2024- season) 2024 02/06/2021, 05/09/2020, 04/18/2020 Influenza Adult (#1) 2024 11/25/2023, 11/19/2022, 11/16/2021, Additional history exists Colorectal Cancer Screening Colonoscopy (10 Years) 02/06/2029 02/06/2019, 02/06/2019, 02/06/2019 Hepatitis C Completed 12/12/2020 PHQ-2 (Physician [place]) Completed 04/18/2024 Hepatitis A Vaccines Aged Out [...] Procedure Name Priority Date/Time Associated Diagnosis Comments IMAGE GENERIC 01/25/2025 PROCEDURE GENERIC (SCAN ORDER) 01/25/2025 NJX INTERLAMINAR CRV/THRC 12/10/2024 9:55 AM CDT Cervical radiculopathy XR PAIN CLINIC C-ARM Today 12/10/2024 9:46 AM CDT HEPATITIS C ANTIBODY 12/12/2020 7:42 AM CDT COLONOSCOPY Routine 02/06/2019 9:54 AM MOTOR DRIVER from Last 3 Months or Most Recently Relevant to Health Maintenance Results * IMAGE GENERIC (01/25/2025) Anatomical Region Laterality Modality Other 01/25/2025 [facility] Scanned SCANNING Final Resu lt * PROCEDURE GENERIC (SCAN ORDER) (01/25/2025) 01/25/2025 [facility] Scanned SCANNING Final Resu lt * XR PAIN CLINIC C-ARM (12/10/2024 9:46 AM CDT) Narrative Radiology, Technologist - 12/10/2024 9:46 AM CDT This report does not contain a radiologist's interpretation. Please review associated procedure and/or operative report. Martha Wang MD GENERAL IMAGING Final Result * HEPATITIS C ANTIBODY (12/12/2020 7:42 AM CDT) HEPATITIS C AB <0.1 0.0 - 0.9 s/co ratio [facility] 1 Comment: Negative: < 0.8 Indeterminate: 0.8 - 0.9 Positive: > 0.9 The CDC recommends that a positive HCV antibody result be followed up with a HCV Nucleic Acid Amplification test ([id number]). 12/12/2020 7:42 AM CDT 12/12/2020 Narrative [facility] - 12/18/2020 8:13 AM CDT Performed at: [facility] [id number] Fruit Harvester: Neo Parks PhD, Phone: [phone] us Alexandra Wilson DO LABORATORY Final Result [facility] [address] [place] [address] [facility] 1 * COLONOSCOPY (02/06/2019) us Documents Scanned SCANNING Final Result [facility] ONBASE from Last 3 Months or Most Recently Relevant to Health Maintenance Insurance [facility] Care Teams Iv Rn Relationship Specialty Start Date End Date Alexandra Wilson DO [address] [place], [place] [id number] PCP - General 07/07/15
--- OUTSIDE RECORDS SUMMARY | 2025-02-05 15:32 | XMS_ITS | Encounter Summary ---
Author Organization [facility] Address [facility] [place] [address] Care Team Providers Care Process Automation Engineer Name Role Phone Alexandra Wilson DO Primary Care Provider [phone] Reason for Visit * Reason Comments Image (SCAN) Procedure (SCAN) Encounter Details Date Type Department Care Team ([facility] Contact Info) Description 01/25/2025 Scan HEALTH INFO SRVCS Scanned, Doc Med Group Image (SCAN); Procedure (SCAN) Social History Tobacco Use Types Packs/Day Years [...] on file documented as of this encounter Procedures Procedure Name Priority Date/Time Associated Diagnosis Comments IMAGE GENERIC 01/25/2025 PROCEDURE GENERIC (SCAN ORDER) 01/25/2025 documented in this encounter Results * PROCEDURE GENERIC (SCAN ORDER) (01/25/2025) 01/25/2025 us Doc Med Group Scanned SCANNING Final Resu lt * IMAGE GENERIC (01/25/2025) Anatomical Region Laterality Modality Other 01/25/2025 us Doc Med Group Scanned SCANNING Final Resu lt documented in this encounter Visit Diagnoses Not on filedocumented in this encounter Additional Health Concerns Assessment Noted Time PHQ-9 Depression Total Score: 0 11/15/19 21 7:50 AM CDT documented as of this encounter Care Teams Process Automation Engineer Relationship Specialty Start Date End Date Alexandra Wilson DO [address] [place] [address] PCP - General 07/07/15 documented as of this encounter
== END 2025-02-05 13:28 | disposition home or self-care (01) ==
PROVIDERS: PCP Family Medicine; Visit Provider Urology
DX: N20.0 Calculus of kidney (principal); N20.1 Calculus of ureter
CPT/HCPCS: 74018

== ENCOUNTER 2025-02-11 08:08 | Outpatient (CLI) | payer OTHER, SELFPAY ==
--- NOTE | ~2025-02-11 | XR_ITS ---
XR abdomen/kub 1V 02/11/2025 08:21 Indication: Kidney stone Procedure: KUB Comparison: 02/05/2025 Findings: Bowel gas pattern nonobstructive. There are right renal stones particularly in the lower pole. There is right proximal ureteral stones near the expected location of the UPJ. There is a right internal ureteral stent in expected position. Bowel gas pattern nonobstructive. There are pelvic phleb oliths. Impression: 1: Stable right renal and proximal ureteral stones compared with prior examination. Reviewed, dictated and finalized at location O. ER/WAITRESS TAKE OUT Impression: 1: Stable right renal and proximal ureteral stones compared with prior examinat ion.
--- OUTSIDE RECORDS SUMMARY | 2025-02-11 08:19 | XMS_ITS | Clinical Summary ---
Author Organization [facility] Address [address] [place] [address] Care Team Providers Care Food Stylist Name Role Phone Alexandra Wilson Primary Care Provider [phone] Allergies No known active allergies Medications fish [...] (11/04/2022): Added automatically from request for surgery [id number] Dyslipidemia 01/17/2012 Hypertension 01/17/2012 Esophageal stricture Resolved Problems Problem Noted Date Diagnosed Date Resolved Date Fatigue 08/05/2016 08/09/2022 Encounters Date Type Department Care Team Description 2025 Scan [facility] INFO SRVCS Scanned, Doc Med Group Image (SCAN) 01/25/2025 Scan [facility] INFO SRVCS Scanned, Doc Med Group Image (SCAN); Procedure (SCAN) 01/22/2025 Scan [facility] INFO SRVCS Scanned, Doc Med Group 01/19/2025 Scan [facility] INFO SRVCS Scanned, Doc Med Group 12/21/2024 Scan [facility] INFO SRVCS Scanned, Doc Med Group 12/10/2024 10:20 AM CDT - 12/10/2024 10:40 AM CDT Surgery [facility] Interventional [place] [address] [id number] Martha Wang MD INJECTION EPIDURAL STEROID CERVICAL c67 12/10/2024 9:43 AM CDT - 12/10/2024 10:06 AM CDT Hospital Encounter [facility] [place]ventional [place] [address] [id number] Martha Wang MD Discharge Disposition: Home or [...] 02/06/2019 Hepatitis C Completed 12/12/2020 PHQ-2 (Physician [place] Completed 04/18/2024 Hepatitis A Vaccines Aged Out [...] Priority Date/Time Associated Diagnosis Comments IMAGE GENERIC 2025 IMAGE GENERIC 01/25/2025 PROCEDURE GENERIC (SCAN ORDER) 01/25/2025 NJX INTERLAMINAR CRV/THRC 12/10/2024 9:55 AM CDT Cervical radiculopathy XR PAIN CLINIC C-ARM Today 12/10/2024 9:46 AM CDT HEPATITIS C ANTIBODY 12/12/2020 7:42 AM CDT COLONOSCOPY Routine 02/06/2019 9:54 AM FIXED INCOME PORTFOLIO MANAGER from Last 3 Months or Most Recently Relevant to Health Maintenance Results * IMAGE GENERIC (2025) Only the most recent of2 resultswithin the time period is included. Anatomical Region Laterality Modality Other 2025 [facility] Scanned SCANNING Final Resu lt * PROCEDURE GENERIC (SCAN ORDER) (01/25/2025) 01/25/2025 [facility] Scanned SCANNING Final Resu lt [...] with a HCV Nucleic Acid Amplification test ([id number]). 12/12/2020 7:42 AM CDT 12/12/2020 Narrative [facility] - 12/18/2020 8:13 AM CDT Performed at: [facility] [address] [id number] Bar Useful Or Busser: Neo Parks PhD, Phone: [phone] us Alexandra Wilson DO LABORATORY Final Result [facility] [address] [place] [address] [facility] 1 * COLONOSCOPY (02/06/2019) us Documents Scanned SCANNING Final Result [facility] ONBASE from Last 3 Months or Most Recently Relevant to Health Maintenance Insurance [employer] [facility] Member Subscriber Plan / Payer (Ef fective 2022-Present) Name:Carlos Johnson Relation to Subscriber:Self Name:Carlos Johnson Payer ID:[id number] (NAIC) Type:Not on file Address: [place] [phone] Care Teams Food Stylist Relationship Specialty Start Date End Date Alexandra Wilson DO [address] [place] [address] PCP - General 07/07/15
--- OUTSIDE RECORDS SUMMARY | 2025-02-11 08:19 | XMS_ITS | Encounter Summary ---
Author Organization [facility] Address [facility] [place] [address] Care Team Providers Care Xerox Machine Assembler Name Role Phone Alexandra Wilson DO Primary Care Provider [phone] Reason for Visit * Reason Comments Image (SCAN) Encounter Details Date Type Department Care Team (Latest Contact Info) Description 2025 Scan HEALTH INFO SRVCS Scanned, Doc Med Group Image (SCAN) Social History Tobacco Use Types Packs/Day [...] Date/Time Associated Diagnosis Comments IMAGE GENERIC 2025 documented in this encounter Results * IMAGE GENERIC (2025) Anatomical Region Laterality Modality Other 2025 us Doc Med Group Scanned SCANNING Final Resu lt documented in this encounter Visit Diagnoses Not on filedocumented in this encounter Additional Health Concerns Assessment Noted Time PHQ-9 Depression Total Score: 0 09/24/20 21 7:50 AM CDT documented as of this encounter Care Teams Xerox Machine Assembler Relationship Specialty Start Date End Date Alexandra Wilson DO [address] [place] [address] PCP - General 07/07/15 documented as of this encounter
== END 2025-02-11 08:09 | disposition home or self-care (01) ==
PROVIDERS: PCP Family Medicine; Visit Provider Urology
DX: N20.2 Calculus of kidney with calculus of ureter (principal)
CPT/HCPCS: 74018